=== PATIENT | male | born 1995 | race Caucasian/White ===

== ENCOUNTER 2019-06-01 18:05 | Emergency (ER) | payer OTHER ==
[~2019-06-01] VITALS: Ht 180.3 cm; Wt 91.2 kg
[2019-06-01 18:14] VITALS: Ht 180.3 cm; Wt 91.2 kg
[2019-06-01 18:33] LABS: BASOPHIL % 0.7 % (0-2); PLATELET COUNT 380 x10^3mcL (130-400); RED CELL DISTRIBUTION WIDTH 13.2 % (11.5-14.5)
[2019-06-01 18:36] LABS: CALCIUM 8.9 mg/dL (8.5-10.1); CARBON DIOXIDE 27.5 mmol/L (21-32); CHLORIDE SERUM 102 mmol/L (98-107); CREATININE SERUM 0.9 mg/dL (0.7-1.3); GFR1 > 60 mL/min; GLUCOSE SERUM 85 mg/dL (74-106); POTASSIUM SERUM 3.8 mmol/L (3.5-5.1); SODIUM SERUM 141 mmol/L (136-145)
[2019-06-01 18:40] LABS: ALBUMIN 4.5 g/dL (3.4-5.0); ALKALINE PHOSPHATASE 62 U/L (46-116); ALT/SGPT 30 U/L (16-63); AMYLASE 26 U/L (25-115); AST/SGOT 24 U/L (15-37); BILIRUBIN TOTAL 0.8 mg/dL (0.20-1.00); LIPASE 70 IU/L (73-393); TOTAL PROTEIN, SERUM 8.1 g/dL (6.4-8.2)
[2019-06-01 19:21] LABS: UA SPECIFIC GRAVITY 1.025 (1.005-1.035); microscopic required? YES; urine erythrocyte 1+ (NEGATIVE)
[2019-06-01 21:16] VITALS: BP 133/69
== END 2019-06-01 21:00 | disposition home or self-care (01) ==
LOC: ED 18:05
PROVIDERS: Emergency Medicine
DX: R10.11 Right upper quadrant pain (principal)
CPT/HCPCS: 36415; Q0092